=== PATIENT | male | born 1950 | race Asian ===

== ENCOUNTER 2019-07-18 07:08 | Day surgery (SDC) | payer BC ==
[~2019-07-18] VITALS: Ht 172.7 cm; Wt 79.6 kg
[~2019-07-18 07:08] MED LIST: AMLODIPINE; PANTOPRAZOLE; TENO25TA PO; VIREAD
[2019-07-18 08:33] VITALS: Ht 172.7 cm; Wt 79.6 kg
[2019-07-18 09:35] VITALS: BP 180/108; PULSE 68; RESP 12
[2019-07-18] MEDS ORDERED: PROPOFOL 60 ML ONE (10:00)
[2019-07-18 10:11] VITALS: BP 111/81; PULSE 64; RESP 18
[2019-07-18 10:16] VITALS: BP 107/76; PULSE 64; RESP 16
[2019-07-18 10:21] VITALS: BP 120/82; PULSE 64; RESP 15
[2019-07-18 10:26] VITALS: BP 121/81; PULSE 60; RESP 12
[2019-07-18 10:42] VITALS: BP 139/85; PULSE 70; RESP 20
== END 2019-07-18 11:08 | disposition home or self-care (01) ==
LOC: GIL 07:08
PROVIDERS: ATTEND Internal Medicine Gastroenterology
DX: I85.00 Esophageal varices without bleeding (principal); K31.7 Polyp of stomach and duodenum; I10 Essential (primary) hypertension; F17.200 Nicotine dependence, unspecified, uncomplicated; Z85.05 Personal history of malignant neoplasm of liver
CPT/HCPCS: 43251; 88305; 88312; Z7610